=== PATIENT | male | born 1945 | race Caucasian/White ===

== ENCOUNTER 2017-07-06 08:10 | Day surgery (SDC) | payer MEDICARE, BC ==
[~2017-07-06] VITALS: Ht 172.7 cm; Wt 122.9 kg
[~2017-07-06 08:10] MED LIST: ADVAIR 250-501 EACH INH; ALLOPURINOL300 MG PO; AMLODIPINE BESYL5 MG PO; LANTUS100 UNITS/ SUB-Q; LOSARTAN POTAS100 MG PO; PANTOPRAZOLE SO40 MG PO; SERTRALINE HCL100 MG PO; TERAZOSIN HCL5 MG PO; TRADJENTA5 MG PO
== END 2017-07-06 10:01 | disposition home or self-care (01) ==
LOC: OPS 08:10 → DS 08:10 → OPS 10:00
PROVIDERS: Ophthalmology
PROC: 08RJ3JZ Replacement of Right Lens with Synthetic Substitute, Percutaneous Approach (ICD-10-PCS; principal; 2017-07-06 09:30)
DX: H25.11 Age-related nuclear cataract, right eye (principal); I10 Essential (primary) hypertension; E11.9 Type 2 diabetes mellitus without complications; J45.909 Unspecified asthma, uncomplicated; Z98.890 Other specified postprocedural states; Z91.041 Radiographic dye allergy status
CPT/HCPCS: 140